=== PATIENT | female | born 1965 | race Caucasian/White ===

== ENCOUNTER 2023-10-23 10:29 | Outpatient (CLI) | payer MEDICAID ==
[~2023-10-23 10:29] MED LIST: FLO110IN INH; LEVO200T8 PO; LORA10TA7 PO; MONT-40 PO; VENL-190 PO
[2023-10-23] MEDS ORDERED: iohexol 300mg/ml 100ml inj. ONE (10:44)
== END 2023-10-23 23:59 | disposition home or self-care (01) ==
LOC: RAD 10:29
PROVIDERS: ATTEND Internal Medicine Gastroenterology
DX: K86.81 Exocrine pancreatic insufficiency (principal); K86.89 Other specified diseases of pancreas; Z90.49 Acquired absence of other specified parts of digestive tract
CPT/HCPCS: 74160; Q9967